=== PATIENT | female | born 1930 | race African-American/Black ===

== ENCOUNTER 2018-12-28 13:21 | Inpatient (IN) | payer MEDICARE, MEDICAID ==
[~2018-12-28] VITALS: Ht 171.4 cm; Wt 67.1 kg
[~2018-12-28 13:21] MED LIST: AMLO10TA80 PO; ANAS1TAB7 PO; APIX2.5T PO; COLC0.6T66 PO; CYAN100053 IM; DIPH50CA38 PO; DOCU-150 PO; ESOM40CA PO; HYDR-4005 GT; HYDR25TA PO; HYDR453.3 TP; MEGE400O PO; MELO-106 PO; METH500T PO; PREG75CA PO; TRAM50TA3 PO; TRIA1CAP6 PO
[2018-12-28] MEDS ORDERED: SODIUM CHLORIDE 0.9% 1,000 ML IV ONE (14:13)
[2018-12-28 14:35] LABS: BASOPHILS % 0.7 % (0.0-2.0); EOSINOPHILS % 2.5 % (0.0-5.0); HEMATOCRIT. 37.9 % (36.0-48.0); HEMOGLOBIN. 12.7 g/dL (12.0-16.0); LYMPHOCYTES % 17.2 % (20.0-50.0); MEAN CORPUSCULAR VOLUME 95.6 fL (81.0-99.0); MEAN PLATELET VOLUME 7.1 fl (7.4-10.4); MONOCYTES % 6.5 % (2.0-8.0); NEUTROPHILS % 73.1 % (40.0-76.0); PLATELET 289 x1000/uL (130-400); RED BLOOD CELL COUNT 3.97 mill/uL (4.2-5.4); RED CELL DISTRIBUTION WIDTH 14.8 % (11.6-14.6)
[2018-12-28 14:40] LABS: CHLORIDE 105 mEq/L (98-107)
[2018-12-28 14:41] LABS: INR 1.1
[2018-12-28] MEDS ORDERED: KCL 20MEQ/100ML PREMIX 100 ML IV ONE (15:45)
[2018-12-28] MEDS ORDERED: POTASSIUM CHLORIDE 20MEQ TABLET SR PO ONE (15:45)
[2018-12-28] MEDS: SODIUM CHLORIDE 0.9% 1,000 ML IV SCH (16:31)
[2018-12-28] MEDS ORDERED: DILTIAZEM HCL 30MG TABLET PO NR (17:00)
[2018-12-28] MEDS ORDERED: DOCUSATE SODIUM 100MG CAPSULE PO SCH (17:00)
[2018-12-28] MEDS ORDERED: DEXTROSE 50% WATER 50ML SYRINGE IV PRN ×2 (17:00)
[2018-12-28 18:09] LABS: CLARITY URINE CLEAR (CLEAR); COLOR URINE YELLOW (YELLOW); KETONES URINE NEGATIVE (NEGATIVE); LEUKOCYTE ESTERASE URINE NEGATIVE (NEGATIVE); NITRITE URINE NEGATIVE (NEGATIVE); OCCULT BLOOD URINE NEGATIVE (NEGATIVE); PH URINE 7.5 (4.5-8.0); PROTEIN URINE NEGATIVE (NEGATIVE); SPECIFIC GRAVITY URINE 1.005 (1.005-1.030); UROBILINOGEN URINE 0.2 E.U./dL (0.2-1.0)
[2018-12-28] MEDS ORDERED: METHOCARBAMOL 500MG TABLET PO PRN (18:30)
[2018-12-28] MEDS ORDERED: APIXABAN 2.5 MG TABLET PO NR (19:00)
[2018-12-28] MEDS: TRAMADOL 50MG TABLET PO PRN (20:03)
[2018-12-28 22:00] VITALS: BP_SYST 146; BP_SYST 147; BP_SYST 150; BP_DIAS 60; BP_DIAS 68; BP_DIAS 84; BP_DIAS 92
[2018-12-29] VITALS: BP 129/74
[2018-12-29] MEDS ORDERED: HYDROCORTISONE 2.5% CREAM 20GM TOP PRN
[2018-12-29] MEDS ORDERED: CYANOCOBALAMIN 1000MCG/ML VIAL IM SCH
[2018-12-29] MEDS: PREGABALIN 75MG CAPSULE PO SCH ×3 (00:11→21:16)
[2018-12-29] MEDS: FAMOTIDINE 20MG TABLET PO SCH ×2 (00:11→21:16)
[2018-12-29] MEDS: BLOOD SUGAR DIAGNOSTIC STRIP TEST SCH ×5 (00:12→21:17)
[2018-12-29] MEDS: INSULIN LISPRO 100 UNITS/ML SUBCUT SCH ×5 (00:20→21:00)
[2018-12-29 04:00] VITALS: BP 132/68
[2018-12-29] MEDS: TRAMADOL 50MG TABLET PO PRN (04:16)
[2018-12-29] MEDS: SODIUM CHLORIDE 0.9% 1,000 ML IV SCH ×2 (04:17→18:38)
[2018-12-29 05:54] LABS: BASOPHILS % 0.3 % (0.0-2.0); HEMATOCRIT. 32.2 % (36.0-48.0); HEMOGLOBIN. 10.9 g/dL (12.0-16.0); MEAN CORPUSCULAR HEMOGLOBIN 32.1 pg (28.0-32.0); MEAN CORPUSCULAR VOLUME 95.1 fL (81.0-99.0); MEAN PLATELET VOLUME 7.5 fl (7.4-10.4); MONOCYTES % 10.2 % (2.0-8.0); NEUTROPHILS % 54.5 % (40.0-76.0); PLATELET 298 x1000/uL (130-400); RED BLOOD CELL COUNT 3.39 mill/uL (4.2-5.4); RED CELL DISTRIBUTION WIDTH 14.6 % (11.6-14.6)
[2018-12-29 05:57] LABS: CHLORIDE 114 mEq/L (98-107)
[2018-12-29 06:05] LABS: HDL CHOLESTEROL 50 mg/dL (40-59)
[2018-12-29 06:06] LABS: LDL CHOLESTEROL 56 mg/dL (5-100)
[2018-12-29 07:50] VITALS: BP 128/70
[2018-12-29] MEDS: COLCHICINE 0.6MG TABLET PO SCH (08:45)
[2018-12-29] MEDS: MELOXICAM 7.5MG TABLET PO SCH (08:45)
[2018-12-29] MEDS: DOCUSATE SODIUM 100MG CAPSULE PO SCH ×2 (08:47→16:05)
[2018-12-29] MEDS: MEGESTROL ACETATE 400 MG/10 ML UDC PO SCH (09:22)
[2018-12-29] MEDS: APIXABAN 2.5 MG TABLET PO SCH ×2 (09:23→16:05)
[2018-12-29] MEDS: ANASTROZOLE 1 MG TABLET PO SCH (09:55)
[2018-12-29] MEDS ORDERED: POTASSIUM CHLORIDE 20MEQ TABLET SR PO SCH (11:30)
[2018-12-29 12:00] VITALS: BP 124/64
[2018-12-29 16:00] VITALS: BP_SYST 139; BP_SYST 148; BP_SYST 165; BP_DIAS 75; BP_DIAS 78; BP_DIAS 92
[2018-12-29 20:00] VITALS: BP_SYST 145; BP_SYST 147; BP_SYST 152; BP_DIAS 62; BP_DIAS 72; BP_DIAS 78
[2018-12-30] VITALS: BP 140/70
[2018-12-30] MEDS: TRAMADOL 50MG TABLET PO PRN (01:39)
[2018-12-30 04:00] VITALS: BP 135/64
[2018-12-30] MEDS: BLOOD SUGAR DIAGNOSTIC STRIP TEST SCH ×2 (06:34→13:15)
[2018-12-30] MEDS: INSULIN LISPRO 100 UNITS/ML SUBCUT SCH ×2 (06:34→13:10)
[2018-12-30 07:33] LABS: BASOPHILS % 0.7 % (0.0-2.0); EOSINOPHILS % 5.1 % (0.0-5.0); HEMATOCRIT. 31.6 % (36.0-48.0); HEMOGLOBIN. 10.7 g/dL (12.0-16.0); LYMPHOCYTES % 32.2 % (20.0-50.0); MEAN CORPUSCULAR HEMOGLOBIN 32.2 pg (28.0-32.0); MEAN CORPUSCULAR VOLUME 95.2 fL (81.0-99.0); MEAN PLATELET VOLUME 7.6 fl (7.4-10.4); PLATELET 289 x1000/uL (130-400); RED BLOOD CELL COUNT 3.32 mill/uL (4.2-5.4); RED CELL DISTRIBUTION WIDTH 14.8 % (11.6-14.6)
[2018-12-30 07:56] LABS: CHLORIDE 113 mEq/L (98-107)
[2018-12-30] MEDS: MELOXICAM 7.5MG TABLET PO SCH (08:30)
[2018-12-30] MEDS: COLCHICINE 0.6MG TABLET PO SCH (08:30)
[2018-12-30] MEDS: DOCUSATE SODIUM 100MG CAPSULE PO SCH (08:30)
[2018-12-30] MEDS: PREGABALIN 75MG CAPSULE PO SCH (08:30)
[2018-12-30] MEDS: MEGESTROL ACETATE 400 MG/10 ML UDC PO SCH (08:30)
[2018-12-30] MEDS: APIXABAN 2.5 MG TABLET PO SCH (08:30)
[2018-12-30] MEDS: ANASTROZOLE 1 MG TABLET PO SCH (09:27)
[2018-12-30] MEDS: SODIUM CHLORIDE 0.9% 1,000 ML IV SCH (13:12)
[2018-12-30 16:44] VITALS: BP 129/85
== END 2018-12-30 17:24 | disposition home health service (06) | DRG 74 ==
LOC: ER 13:21 → 7WST 16:21 → EDBEDREQ 16:31 → ENRESERV 20:40
PROVIDERS: ADMIT Specialist; ATTEND Specialist
DX: G90.8 Other disorders of autonomic nervous system (principal); E44.1 Mild protein-calorie malnutrition; E87.6 Hypokalemia; E86.0 Dehydration; R62.7 Adult failure to thrive; I48.91 Unspecified atrial fibrillation; E11.65 Type 2 diabetes mellitus with hyperglycemia; E78.5 Hyperlipidemia, unspecified; I10 Essential (primary) hypertension; I25.10 Atherosclerotic heart disease of native coronary artery without angina pectoris; I95.9 Hypotension, unspecified; E87.5 Hyperkalemia; I45.9 Conduction disorder, unspecified; Z79.01 Long term (current) use of anticoagulants; Z85.3 Personal history of malignant neoplasm of breast; Z90.12 Acquired absence of left breast and nipple; Z82.49 Family history of ischemic heart disease and other diseases of the circulatory system; Z68.22 Body mass index [BMI] 22.0-22.9, adult; Z88.8 Allergy status to other drugs, medicaments and biological substances; Z88.0 Allergy status to penicillin
CPT/HCPCS: 36415; 71045; 80048; 80061; 81003; 82947; 82962; 83036; 83735; 84443; 84484; 93005; 93306; 97162; 99291; J1815; J3480; J7030

== ENCOUNTER 2019-01-29 14:32 | Inpatient (IN) | payer MEDICARE, MEDICAID ==
[~2019-01-29] VITALS: Ht 167.6 cm; Wt 68.9 kg
[~2019-01-29 14:32] MED LIST changes: -AMLO10TA80 PO; -HYDR25TA PO; -TRIA1CAP6 PO
[2019-01-29] MEDS ORDERED: ACETAMINOPHEN 650MG SUPP PR STA (14:59)
[2019-01-29] MEDS ORDERED: AZTREONAM IV ONE (15:00)
[2019-01-29] MEDS ORDERED: DEXT 5% IV ONE (15:00)
[2019-01-29] MEDS ORDERED: LEVOFLOXACIN 750MG PREMIX 150 ML IV ONE (15:00)
[2019-01-29] MEDS ORDERED: SODIUM CHLORIDE 0.9% 1000ML BAG (SEPSIS BOLUS) IV ONE (15:00)
[2019-01-29] MEDS ORDERED: WATER IV ONE (15:00)
[2019-01-29] MEDS ORDERED: AZTREONAM 2 GM in DEXT 5% WATER 100 ML IV ONE (15:38)
[2019-01-29 15:42] LABS: CHLORIDE 101 mEq/L (98-107)
[2019-01-29 15:48] LABS: HEMATOCRIT. 38.9 % (36.0-48.0); MEAN CORPUSCULAR HEMOGLOBIN 31.8 pg (28.0-32.0); MEAN CORPUSCULAR VOLUME 95.1 fL (81.0-99.0); MEAN PLATELET VOLUME 7.7 fl (7.4-10.4); PLATELET 280 x1000/uL (130-400); RED BLOOD CELL COUNT 4.09 mill/uL (4.2-5.4); RED CELL DISTRIBUTION WIDTH 14.8 % (11.6-14.6)
[2019-01-29 15:49] LABS: PROTHROMBIN TIME 10.7 sec (9.6-11.0)
[2019-01-29 15:55] LABS: CLARITY URINE CLEAR (CLEAR); COLOR URINE YELLOW (YELLOW); KETONES URINE TRACE (NEGATIVE); LEUKOCYTE ESTERASE URINE NEGATIVE (NEGATIVE); NITRITE URINE NEGATIVE (NEGATIVE); OCCULT BLOOD URINE NEGATIVE (NEGATIVE); PH URINE 7.5 (4.5-8.0); PROTEIN URINE NEGATIVE (NEGATIVE); SPECIFIC GRAVITY URINE 1.015 (1.005-1.030)
[2019-01-29 17:44] LABS: PLATELET ESTIMATE NORMAL
[2019-01-29] MEDS ORDERED: LORAZEPAM 2MG/ML CPJ IV PRN (17:45)
[2019-01-29] MEDS ORDERED: MORPHINE SULFATE 2 MG/ML CPJ (NOT FOR IM USE) IV PRN (17:45)
[2019-01-29] MEDS ORDERED: DIPHENHYDRAMINE 50MG/ML VIAL IV PRN (17:45)
[2019-01-29] MEDS ORDERED: MAGNESIUM/ALUMINUM HYDROXIDE/SIMETHICONE 30ML UDC PO PRN (17:45)
[2019-01-29] MEDS ORDERED: ACETAMINOPHEN 325MG TABLET PO PRN (17:45)
[2019-01-29] MEDS ORDERED: DOCUSATE SODIUM 100MG CAPSULE PO PRN (17:45)
[2019-01-29] MEDS ORDERED: ACETAMINOPHEN 650MG SUPP PR PRN (17:45)
[2019-01-29] MEDS ORDERED: GUAIFENESIN 200MG/10ML SUGAR FREE UDC PO PRN (17:45)
[2019-01-29] MEDS ORDERED: CLONIDINE 0.1MG TABLET PO PRN (17:45)
[2019-01-29] MEDS ORDERED: ONDANSETRON HCL 4MG/2ML INJ IV PRN (17:45)
[2019-01-29] MEDS ORDERED: IPRATROPIUM/ALBUTEROL 0.5-3(2.5)MG/3ML NEB HHN PRN (17:45)
[2019-01-29] MEDS: DEXT 5%/LACTATED RINGERS 1,000 ML IV SCH (20:00)
[2019-01-29] MEDS ORDERED: DIPHENHYDRAMINE 50MG CAPSULE PO NR (21:45)
[2019-01-29] MEDS ORDERED: METHOCARBAMOL 500MG TABLET PO PRN (21:45)
[2019-01-29 22:00] VITALS: BP_SYST 116; BP_SYST 117; BP_DIAS 53; BP_DIAS 76
[2019-01-29] MEDS: HYDROCODONE/ACETAMINOPHEN 5/325MG TABLET PO PRN (22:16)
[2019-01-29] MEDS: PREGABALIN 50 MG CAPSULE PO SCH (22:25)
[2019-01-30] VITALS (11 sets, daily range): BP systolic 105–132; BP diastolic 47–91
[2019-01-30] MEDS ORDERED: POTASSIUM CHLORIDE INJ 40 MEQ in DEXT 5% WATER 250 ML IV NR ×2
[2019-01-30] MEDS: METRONIDAZOLE 500 MG PREMIX 100 ML IV SCH ×3 (02:42→17:21)
[2019-01-30 06:36] LABS: CHLORIDE 105 mEq/L (98-107)
[2019-01-30 06:45] LABS: HEMATOCRIT. 35.3 % (36.0-48.0); MEAN CORPUSCULAR HEMOGLOBIN 32.5 pg (28.0-32.0); MEAN CORPUSCULAR VOLUME 95.3 fL (81.0-99.0); MEAN PLATELET VOLUME 8.1 fl (7.4-10.4); PLATELET 253 x1000/uL (130-400)
[2019-01-30 06:47] LABS: CREATINE KINASE 129 IU/L (26-192)
[2019-01-30 06:48] LABS: HDL CHOLESTEROL 51 mg/dL (40-59); LDL CHOLESTEROL 57 mg/dL (5-100)
[2019-01-30] MEDS ORDERED: PNEUMOCOCCAL 23-VAL P-SAC VAC 0.5 ML IM ONE (08:00)
[2019-01-30] MEDS ORDERED: APIXABAN 2.5 MG TABLET PO SCH (09:00)
[2019-01-30] MEDS: COLCHICINE 0.6MG TABLET PO SCH (09:24)
[2019-01-30] MEDS: ANASTROZOLE 1 MG TABLET PO SCH (09:24)
[2019-01-30] MEDS: PREGABALIN 50 MG CAPSULE PO SCH ×3 (09:24→17:20)
[2019-01-30] MEDS: DEXT 5%/LACTATED RINGERS 1,000 ML IV SCH (09:25)
[2019-01-30] MEDS: MEGESTROL ACETATE 400 MG/10 ML UDC PO SCH (09:25)
[2019-01-30] MEDS ORDERED: INFLUENZA VIRUS VACCINE(AFLURIA) 0.5ML SYR IM ONE (10:00)
[2019-01-30 10:23] LABS: PLATELET ESTIMATE NORMAL
[2019-01-30] MEDS: LEVOFLOXACIN 250MG PREMIX 50 ML IV SCH (15:30)
[2019-01-30] MEDS ORDERED: LEVOFLOXACIN 500MG PREMIX 100 ML IV SCH (17:00)
[2019-01-30] MEDS: ENOXAPARIN 80MG/0.8ML SYR SUBCUT SCH (21:42)
[2019-01-31] VITALS (9 sets, daily range): BP systolic 125–156; BP diastolic 64–87
[2019-01-31] MEDS: METRONIDAZOLE 500 MG PREMIX 100 ML IV SCH ×3 (02:59→20:33)
[2019-01-31] MEDS: HYDROCODONE/ACETAMINOPHEN 5/325MG TABLET PO PRN (05:06)
[2019-01-31] MEDS: DEXT 5%/LACTATED RINGERS 1,000 ML IV SCH ×3 (05:07→22:09)
[2019-01-31 06:33] LABS: BASOPHILS % 0.3 % (0.0-2.0); EOSINOPHILS % 3.1 % (0.0-5.0); HEMATOCRIT. 36.9 % (36.0-48.0); HEMOGLOBIN. 12.5 g/dL (12.0-16.0); LYMPHOCYTES % 17.6 % (20.0-50.0); MEAN CORPUSCULAR HEMOGLOBIN 32.3 pg (28.0-32.0); MEAN CORPUSCULAR VOLUME 95.3 fL (81.0-99.0); MEAN PLATELET VOLUME 7.8 fl (7.4-10.4); MONOCYTES % 9.2 % (2.0-8.0); NEUTROPHILS % 69.8 % (40.0-76.0); PLATELET 268 x1000/uL (130-400); RED BLOOD CELL COUNT 3.87 mill/uL (4.2-5.4); RED CELL DISTRIBUTION WIDTH 14.7 % (11.6-14.6)
[2019-01-31 06:45] LABS: CHLORIDE 108 mEq/L (98-107)
[2019-01-31] MEDS: COLCHICINE 0.6MG TABLET PO SCH (08:23)
[2019-01-31] MEDS: MEGESTROL ACETATE 400 MG/10 ML UDC PO SCH (08:23)
[2019-01-31] MEDS: PREGABALIN 50 MG CAPSULE PO SCH ×2 (08:23→16:57)
[2019-01-31] MEDS: ANASTROZOLE 1 MG TABLET PO SCH (08:23)
[2019-01-31] MEDS: ENOXAPARIN 80MG/0.8ML SYR SUBCUT SCH ×2 (08:24→20:34)
[2019-01-31] MEDS ORDERED: POTASSIUM CHLORIDE 20MEQ TABLET SR PO NR (11:00)
[2019-01-31] MEDS: DILTIAZEM HCL 60MG TABLET PO SCH ×2 (13:57→22:08)
[2019-01-31] MEDS: LEVOFLOXACIN 250MG PREMIX 50 ML IV SCH (16:57)
[2019-01-31] MEDS: TRAMADOL 50MG TABLET PO PRN (20:32)
[2019-02-01] VITALS (14 sets, daily range): BP systolic 102–145; BP diastolic 53–73
[2019-02-01] MEDS: TRAMADOL 50MG TABLET PO PRN ×2 (04:39→20:44)
[2019-02-01] MEDS: METRONIDAZOLE 500 MG PREMIX 100 ML IV SCH ×2 (04:39→09:19)
[2019-02-01] MEDS: DILTIAZEM HCL 60MG TABLET PO SCH (05:19)
[2019-02-01] MEDS: DEXT 5%/LACTATED RINGERS 1,000 ML IV SCH (08:24)
[2019-02-01] MEDS: COLCHICINE 0.6MG TABLET PO SCH (08:24)
[2019-02-01] MEDS: ANASTROZOLE 1 MG TABLET PO SCH (08:24)
[2019-02-01] MEDS: PREGABALIN 50 MG CAPSULE PO SCH ×2 (08:24→16:28)
[2019-02-01] MEDS: ENOXAPARIN 80MG/0.8ML SYR SUBCUT SCH ×2 (08:24→20:43)
[2019-02-01] MEDS: MEGESTROL ACETATE 400 MG/10 ML UDC PO SCH (08:25)
[2019-02-01 11:46] LABS: BASOPHILS % 0.3 % (0.0-2.0); EOSINOPHILS % 6.1 % (0.0-5.0); HEMATOCRIT. 32.9 % (36.0-48.0); HEMOGLOBIN. 11.1 g/dL (12.0-16.0); LYMPHOCYTES % 24.5 % (20.0-50.0); MEAN CORPUSCULAR HEMOGLOBIN 32.3 pg (28.0-32.0); MEAN CORPUSCULAR VOLUME 95.7 fL (81.0-99.0); MEAN PLATELET VOLUME 7.7 fl (7.4-10.4); MONOCYTES % 9.8 % (2.0-8.0); NEUTROPHILS % 59.3 % (40.0-76.0); PLATELET 263 x1000/uL (130-400); RED BLOOD CELL COUNT 3.43 mill/uL (4.2-5.4); RED CELL DISTRIBUTION WIDTH 14.8 % (11.6-14.6)
[2019-02-01 12:24] LABS: CHLORIDE 109 mEq/L (98-107)
[2019-02-01] MEDS ORDERED: DILTIAZEM HCL 30MG TABLET PO SCH (14:00)
[2019-02-01] MEDS: LEVOFLOXACIN 250MG TABLET PO SCH (16:29)
[2019-02-01] MEDS ORDERED: MAGNESIUM 2 G PREMIX 50 ML IV SCH (17:00)
[2019-02-01] MEDS: METRONIDAZOLE 500MG TABLET PO SCH (22:41)
[2019-02-02] VITALS (12 sets, daily range): BP systolic 121–157; BP diastolic 34–92
[2019-02-02] MEDS: DEXT 5%/LACTATED RINGERS 1,000 ML IV SCH (01:24)
[2019-02-02] MEDS: METRONIDAZOLE 500MG TABLET PO SCH ×2 (06:33→13:41)
[2019-02-02] MEDS: TRAMADOL 50MG TABLET PO PRN (06:36)
[2019-02-02 08:03] LABS: CHLORIDE 109 mEq/L (98-107)
[2019-02-02 08:04] LABS: BASOPHILS % 0.7 % (0.0-2.0); EOSINOPHILS % 6.7 % (0.0-5.0); HEMATOCRIT. 34.4 % (36.0-48.0); HEMOGLOBIN. 11.5 g/dL (12.0-16.0); LYMPHOCYTES % 30.5 % (20.0-50.0); MEAN CORPUSCULAR HEMOGLOBIN 31.8 pg (28.0-32.0); MEAN PLATELET VOLUME 7.9 fl (7.4-10.4); MONOCYTES % 8.7 % (2.0-8.0); NEUTROPHILS % 53.4 % (40.0-76.0); PLATELET 271 x1000/uL (130-400); RED BLOOD CELL COUNT 3.62 mill/uL (4.2-5.4); RED CELL DISTRIBUTION WIDTH 15.1 % (11.6-14.6)
[2019-02-02] MEDS: PREGABALIN 50 MG CAPSULE PO SCH ×2 (08:51→16:57)
[2019-02-02] MEDS: ANASTROZOLE 1 MG TABLET PO SCH (08:51)
[2019-02-02] MEDS: COLCHICINE 0.6MG TABLET PO SCH (08:51)
[2019-02-02] MEDS: MEGESTROL ACETATE 400 MG/10 ML UDC PO SCH (08:51)
[2019-02-02] MEDS: ENOXAPARIN 80MG/0.8ML SYR SUBCUT SCH (08:52)
[2019-02-02] MEDS ORDERED: LIDOCAINE 5% PATCH TOP SCH ×2 (09:00)
[2019-02-02] MEDS ORDERED: LIDO700A30 TOP (13:13)
[2019-02-02] MEDS ORDERED: POTASSIUM CHLORIDE 20MEQ TABLET SR PO SCH (13:15)
[2019-02-02] MEDS: LEVOFLOXACIN 250MG TABLET PO SCH (16:57)
== END 2019-02-02 17:00 | disposition home or self-care (01) | DRG 872 ==
LOC: ER 14:32 → 5EST 17:35 → EDBEDREQ 17:42 → ENRESERV 19:49
PROVIDERS: ADMIT Family Medicine Adult Medicine; ATTEND Family Medicine Adult Medicine
DX: A41.9 Sepsis, unspecified organism (principal); K81.0 Acute cholecystitis; I48.92 Unspecified atrial flutter; I48.20 Chronic atrial fibrillation, unspecified; E87.6 Hypokalemia; I10 Essential (primary) hypertension; E78.5 Hyperlipidemia, unspecified; K57.30 Diverticulosis of large intestine without perforation or abscess without bleeding; E78.00 Pure hypercholesterolemia, unspecified; I25.10 Atherosclerotic heart disease of native coronary artery without angina pectoris; J44.9 Chronic obstructive pulmonary disease, unspecified; K21.9 Gastro-esophageal reflux disease without esophagitis; R73.9 Hyperglycemia, unspecified; K44.9 Diaphragmatic hernia without obstruction or gangrene; K59.00 Constipation, unspecified; K74.60 Unspecified cirrhosis of liver; R74.0 Nonspecific elevation of levels of transaminase and lactic acid dehydrogenase [LDH]; K82.8 Other specified diseases of gallbladder; M19.90 Unspecified osteoarthritis, unspecified site; Z79.01 Long term (current) use of anticoagulants; Z85.3 Personal history of malignant neoplasm of breast; Z90.11 Acquired absence of right breast and nipple; Z90.12 Acquired absence of left breast and nipple; Z98.51 Tubal ligation status; Z79.899 Other long term (current) drug therapy; Z88.0 Allergy status to penicillin; Z88.8 Allergy status to other drugs, medicaments and biological substances
CPT/HCPCS: 36415; 71045; 74176; 74181; 76705; 80048; 80061; 80076; 81003; 82140; 82248; 82550; 82962; 83605; 83735; 83880; 84132; 84145; 84443; 84484; 90686; 90732; 93005; 93970; 96365; 97162; 97166; 99291; J1200; J1650; J1956; J2060; J3475; J3480; J3490; J7030; J7060; Q0163

== ENCOUNTER 2019-02-09 18:41 | Inpatient (IN) | payer MEDICARE, MEDICAID ==
[~2019-02-09] VITALS: Ht 170.2 cm; Wt 64.9 kg
[~2019-02-09 18:41] MED LIST changes: +LIDO700A30 TOP
[2019-02-09] MEDS ORDERED: SODIUM CHLORIDE 0.9% 1,000 ML IV ONE (20:56)
[2019-02-09 21:25] LABS: HEMATOCRIT. 39.3 % (36.0-48.0); HEMOGLOBIN. 12.9 g/dL (12.0-16.0); MEAN CORPUSCULAR HEMOGLOBIN 32.2 pg (28.0-32.0); RED BLOOD CELL COUNT 4.01 mill/uL (4.2-5.4); RED CELL DISTRIBUTION WIDTH 15.4 % (11.6-14.6)
[2019-02-09 21:29] LABS: CHLORIDE 110 mEq/L (98-107)
[2019-02-09] MEDS ORDERED: IOHEXOL-350 100 ML BOTTLE ONE (21:51)
[2019-02-09 21:53] LABS: MEAN PLATELET VOLUME 7.4 fl (7.4-10.4); PLATELET 364 x1000/uL (130-400)
[2019-02-09 22:01] LABS: PLATELET ESTIMATE NORMAL
[2019-02-09] MEDS ORDERED: KETOROLAC 15MG/ML VIAL IV ONE (22:45)
[2019-02-09] MEDS ORDERED: ONDANSETRON HCL 4MG/2ML INJ IV ONE (23:45)
[2019-02-09 23:55] LABS: CLARITY URINE CLEAR (CLEAR); COLOR URINE YELLOW (YELLOW); KETONES URINE TRACE (NEGATIVE); LEUKOCYTE ESTERASE URINE 1+ (NEGATIVE); NITRITE URINE NEGATIVE (NEGATIVE); OCCULT BLOOD URINE NEGATIVE (NEGATIVE); PROTEIN URINE NEGATIVE (NEGATIVE); SPECIFIC GRAVITY URINE 1.019 (1.005-1.030); UROBILINOGEN URINE 0.2 E.U./dL (0.2-1.0)
[2019-02-10] MEDS ORDERED: CLONIDINE 0.1MG TABLET PO PRN (01:30)
[2019-02-10] MEDS ORDERED: ONDANSETRON HCL 4MG/2ML INJ IV PRN (01:30)
[2019-02-10] MEDS ORDERED: MAGNESIUM/ALUMINUM HYDROXIDE/SIMETHICONE 30ML UDC PO PRN (01:30)
[2019-02-10] MEDS ORDERED: GUAIFENESIN 200MG/10ML SUGAR FREE UDC PO PRN (01:30)
[2019-02-10] MEDS ORDERED: ACETAMINOPHEN 325MG TABLET PO PRN (01:30)
[2019-02-10] MEDS ORDERED: DOCUSATE SODIUM 100MG CAPSULE PO PRN (01:30)
[2019-02-10] MEDS ORDERED: LEVOFLOXACIN 500MG PREMIX 100 ML IV NR (01:47)
[2019-02-10 03:08] VITALS: BP 145/76
[2019-02-10 08:43] VITALS: BP 117/47
[2019-02-10] MEDS: FUROSEMIDE 40MG/4ML VIAL IV SCH (09:47)
[2019-02-10] MEDS: AMLODIPINE 10MG TABLET PO SCH (09:47)
[2019-02-10] MEDS: ENOXAPARIN 40MG/0.4ML SYR SUBCUT SCH (09:48)
[2019-02-10] MEDS ORDERED: HYDROCODONE/APAP 7.5/325MG 1 TAB TABLET GT PRN (10:30)
[2019-02-10] MEDS ORDERED: TRAMADOL 50MG TABLET PO SCH (10:30)
[2019-02-10] MEDS: DIPHENHYDRAMINE 50MG CAPSULE PO SCH ×3 (10:45→23:01)
[2019-02-10] MEDS ORDERED: CYANOCOBALAMIN 1000MCG/ML VIAL IM SCH (10:45)
[2019-02-10 11:55] VITALS: BP 110/53
[2019-02-10] MEDS: MEGESTROL ACETATE 400 MG/10 ML UDC PO SCH (13:31)
[2019-02-10] MEDS: COLCHICINE 0.6MG TABLET PO SCH (13:32)
[2019-02-10] MEDS: ANASTROZOLE 1 MG TABLET PO SCH (13:32)
[2019-02-10] MEDS: METHOCARBAMOL 500MG TABLET PO PRN (13:32)
[2019-02-10] MEDS: PREGABALIN 75MG CAPSULE PO SCH ×2 (13:32→17:27)
[2019-02-10] MEDS: LIDOCAINE 5% PATCH TOP SCH (13:35)
[2019-02-10 15:52] VITALS: BP 113/47
[2019-02-10] MEDS: DOCUSATE SODIUM 100MG CAPSULE PO SCH (17:00)
[2019-02-10] MEDS: APIXABAN 2.5 MG TABLET PO SCH (17:28)
[2019-02-10] MEDS: LOPERAMIDE HCL 2MG CAPSULE PO PRN (18:49)
[2019-02-10 20:00] VITALS: BP 113/49
[2019-02-11] VITALS: BP 152/87
[2019-02-11] MEDS ORDERED: LEVOFLOXACIN 250MG PREMIX 50 ML IV SCH (02:00)
[2019-02-11 04:00] VITALS: BP 129/55
[2019-02-11] MEDS: DIPHENHYDRAMINE 50MG CAPSULE PO SCH ×3 (05:44→17:48)
[2019-02-11 07:16] LABS: BASOPHILS % 0.2 % (0.0-2.0); EOSINOPHILS % 1.4 % (0.0-5.0); HEMATOCRIT. 33.2 % (36.0-48.0); HEMOGLOBIN. 11.3 g/dL (12.0-16.0); LYMPHOCYTES % 16.3 % (20.0-50.0); MEAN CORPUSCULAR HEMOGLOBIN 32.1 pg (28.0-32.0); MEAN CORPUSCULAR VOLUME 94.4 fL (81.0-99.0); MEAN PLATELET VOLUME 7.5 fl (7.4-10.4); MONOCYTES % 7.2 % (2.0-8.0); NEUTROPHILS % 74.9 % (40.0-76.0); PLATELET 384 x1000/uL (130-400); RED BLOOD CELL COUNT 3.51 mill/uL (4.2-5.4); RED CELL DISTRIBUTION WIDTH 15.4 % (11.6-14.6)
[2019-02-11 07:21] LABS: CHLORIDE 110 mEq/L (98-107)
[2019-02-11 08:00] VITALS: BP 133/60
[2019-02-11] MEDS: ENOXAPARIN 40MG/0.4ML SYR SUBCUT SCH (09:00)
[2019-02-11] MEDS: FUROSEMIDE 40MG/4ML VIAL IV SCH (09:00)
[2019-02-11 09:39] LABS: BG BASE EXCESS -3.1 mmol/L (-2.0-2.0); BG DEOXYHEMOGLOBIN 2.5 % (0.0-5.0); BG FRACTION INSPIRED OXYGEN 21; BG HCO3 ACT 19.9 mmol/L (22.0-26.0); BG METHEMOGLOBIN 0.2 % (0.0-1.5); BG OXYGEN SATURATION 97.5 % (92.0-98.5); BG OXYHEMOGLOBIN 97.3 % (94.0-97.0); BG PCO2 29.4 mmHg (35.0-45.0); BG PH 7.448 (7.350-7.450); BG SAMPLE SITE RIGHT BRACHIAL; BG TOTAL HEMOGLOBIN 11.7 g/dL (12.0-18.0); BG VENT MODE ROOM AIR
[2019-02-11] MEDS: ANASTROZOLE 1 MG TABLET PO SCH (09:46)
[2019-02-11] MEDS: MEGESTROL ACETATE 400 MG/10 ML UDC PO SCH (09:46)
[2019-02-11] MEDS: PREGABALIN 75MG CAPSULE PO SCH ×2 (09:46→17:43)
[2019-02-11] MEDS: AMLODIPINE 10MG TABLET PO SCH (09:47)
[2019-02-11] MEDS: COLCHICINE 0.6MG TABLET PO SCH (09:47)
[2019-02-11] MEDS: APIXABAN 2.5 MG TABLET PO SCH ×2 (09:47→17:43)
[2019-02-11] MEDS: HYDROCODONE/ACETAMINOPHEN 5/325MG TABLET PO PRN (09:48)
[2019-02-11] MEDS: LIDOCAINE 5% PATCH TOP SCH (10:00)
[2019-02-11] MEDS: DOCUSATE SODIUM 100MG CAPSULE PO SCH (10:45)
[2019-02-11 12:00] VITALS: BP 100/64
[2019-02-11] MEDS ORDERED: POTASSIUM CHLORIDE INJ 40 MEQ in DEXT 5% WATER 250 ML IV SCH (13:00)
[2019-02-11] MEDS ORDERED: LIDOCAINE HCL/PF 1% 2ML VIAL ONE (13:34)
[2019-02-11] MEDS: POTASSIUM CHLORIDE 20MEQ TABLET SR PO SCH (13:50)
[2019-02-11] MEDS: LOPERAMIDE HCL 2MG CAPSULE PO PRN (15:06)
[2019-02-11 16:00] VITALS: BP 107/71
[2019-02-11] MEDS ORDERED: MAGNESIUM 2 G PREMIX 50 ML IV NR (17:00)
[2019-02-11] MEDS ORDERED: LEVO75TA7 MT (17:58)
[2019-02-11] MEDS ORDERED: MONT4TAB9 MT (18:00)
[2019-02-11] MEDS ORDERED: HYDR-4133 PO (18:01)
[2019-02-11] MEDS ORDERED: LATA7.5D OP (18:55)
[2019-02-11] MEDS ORDERED: DORZ10DR9 EACHEYE (18:56)
[2019-02-11] MEDS ORDERED: DORZ10DR8 EACHEYE (18:56)
[2019-02-11 20:00] VITALS: BP 105/52
[2019-02-12] VITALS: BP_SYST 139; BP_SYST 148; BP_DIAS 52; BP_DIAS 86
[2019-02-12] MEDS: DIPHENHYDRAMINE 50MG CAPSULE PO SCH ×3 (00:53→12:00)
[2019-02-12] MEDS: HYDROCODONE/ACETAMINOPHEN 5/325MG TABLET PO PRN (00:55)
[2019-02-12] MEDS ORDERED: LEVOFLOXACIN 250MG PREMIX 50 ML IV SCH (02:00)
[2019-02-12] MEDS: METHOCARBAMOL 500MG TABLET PO PRN (02:39)
[2019-02-12 04:00] VITALS: BP 120/53
[2019-02-12 08:00] VITALS: BP 124/86
[2019-02-12] MEDS: FUROSEMIDE 40MG/4ML VIAL IV SCH (08:49)
[2019-02-12] MEDS: AMLODIPINE 10MG TABLET PO SCH (08:51)
[2019-02-12] MEDS: POTASSIUM CHLORIDE 20MEQ TABLET SR PO SCH (08:51)
[2019-02-12] MEDS: PREGABALIN 75MG CAPSULE PO SCH (08:51)
[2019-02-12] MEDS: COLCHICINE 0.6MG TABLET PO SCH (08:51)
[2019-02-12] MEDS: APIXABAN 2.5 MG TABLET PO SCH (08:51)
[2019-02-12] MEDS: MEGESTROL ACETATE 400 MG/10 ML UDC PO SCH (08:52)
[2019-02-12] MEDS: ENOXAPARIN 40MG/0.4ML SYR SUBCUT SCH (08:52)
[2019-02-12] MEDS: ANASTROZOLE 1 MG TABLET PO SCH (08:52)
[2019-02-12] MEDS: LIDOCAINE 5% PATCH TOP SCH (08:53)
[2019-02-12] MEDS ORDERED: DOCUSATE SODIUM 100MG CAPSULE PO SCH (09:00)
[2019-02-12 12:00] VITALS: BP 121/55
[2019-02-12] MEDS ORDERED: ASCO500C15 PO (12:39)
[2019-02-12] MEDS ORDERED: BACL-141 PO (12:39)
[2019-02-12] MEDS ORDERED: MIDO10TA PO (12:42)
[2019-02-12] MEDS ORDERED: LEVE500T98 PO (12:42)
[2019-02-12] MEDS ORDERED: PANT20TA3 PO (12:44)
[2019-02-12] MEDS ORDERED: GABA-533 PO (12:45)
[2019-02-12] MEDS ORDERED: BICT1TAB PO (12:45)
[2019-02-12 13:40] LABS: CHLORIDE 110 mEq/L (98-107)
[2019-02-12 14:52] VITALS: BP 121/55
[2019-02-13] MEDS ORDERED: LEVOFLOXACIN 250MG TABLET PO SCH (11:00)
== END 2019-02-12 16:30 | disposition home or self-care (01) | DRG 871 ==
LOC: ER 18:41 → 6WST 23:50 → ENRESERV 02-10 02:20
PROVIDERS: ADMIT Hospitalist; ATTEND Hospitalist
DX: A41.9 Sepsis, unspecified organism (principal); I50.23 Acute on chronic systolic (congestive) heart failure; N39.0 Urinary tract infection, site not specified; D68.59 Other primary thrombophilia; I11.0 Hypertensive heart disease with heart failure; I48.91 Unspecified atrial fibrillation; E78.5 Hyperlipidemia, unspecified; M19.90 Unspecified osteoarthritis, unspecified site; I25.10 Atherosclerotic heart disease of native coronary artery without angina pectoris; Z79.01 Long term (current) use of anticoagulants; Z85.3 Personal history of malignant neoplasm of breast; Z90.12 Acquired absence of left breast and nipple; Z82.49 Family history of ischemic heart disease and other diseases of the circulatory system; Z88.0 Allergy status to penicillin; Z88.8 Allergy status to other drugs, medicaments and biological substances; Z79.899 Other long term (current) drug therapy
CPT/HCPCS: 36415; 36600; 71045; 80048; 81003; 82375; 82805; 83735; 83880; 84443; 84484; 93005; 93970; 96361; 96365; 96375; 97162; 97166; 99285; J1650; J1885; J1940; J1956; J2405; J3475; J3480; J3490; J7030; J7060; Q0163; Q9967

== ENCOUNTER 2019-03-08 11:25 | Inpatient (IN) | payer MEDICARE, MEDICAID ==
[~2019-03-08] VITALS: Ht 170.2 cm; Wt 63.5 kg
[~2019-03-08 11:25] MED LIST changes: +ASCO500C15 PO; +BACL-141 PO; +BICT1TAB PO; +DORZ10DR8 EACHEYE; +DORZ10DR9 EACHEYE; +GABA-533 PO; +HYDR-4133 PO; +LATA7.5D OP; +LEVE500T98 PO; +MIDO10TA PO; +MONT4TAB9 MT; +PANT20TA3 PO
[2019-03-08] MEDS ORDERED: LEVOFLOXACIN 750MG PREMIX 150 ML IV ONE (11:45)
[2019-03-08] MEDS ORDERED: SODIUM CHLORIDE 0.9% 1000ML BAG (SEPSIS BOLUS) IV ONE (11:45)
[2019-03-08 12:28] LABS: BASOPHILS % 0.5 % (0.0-2.0); EOSINOPHILS % 4.2 % (0.0-5.0); HEMATOCRIT. 44.6 % (36.0-48.0); HEMOGLOBIN. 14.8 g/dL (12.0-16.0); LYMPHOCYTES % 28.9 % (20.0-50.0); MEAN CORPUSCULAR HEMOGLOBIN 32.1 pg (28.0-32.0); MEAN CORPUSCULAR VOLUME 96.5 fL (81.0-99.0); MEAN PLATELET VOLUME 7.5 fl (7.4-10.4); MONOCYTES % 3.9 % (2.0-8.0); NEUTROPHILS % 62.5 % (40.0-76.0); PLATELET 322 x1000/uL (130-400); RED BLOOD CELL COUNT 4.62 mill/uL (4.2-5.4); RED CELL DISTRIBUTION WIDTH 15.2 % (11.6-14.6)
[2019-03-08 12:35] LABS: CHLORIDE 105 mEq/L (98-107)
[2019-03-08 12:37] LABS: INR 1.1; PARTIAL THROMBOPLASTIN TIME 29.4 sec (23.4-31.0); PROTHROMBIN TIME 11.1 sec (9.6-11.0)
[2019-03-08] MEDS ORDERED: METRONIDAZOLE 500 MG PREMIX 100 ML IV ONE (13:45)
[2019-03-08] MEDS ORDERED: POTASSIUM CHLORIDE 20MEQ TABLET SR PO ONE (14:15)
[2019-03-08 14:37] LABS: CLARITY URINE CLEAR (CLEAR); COLOR URINE YELLOW (YELLOW); KETONES URINE NEGATIVE (NEGATIVE); LEUKOCYTE ESTERASE URINE NEGATIVE (NEGATIVE); NITRITE URINE NEGATIVE (NEGATIVE); OCCULT BLOOD URINE NEGATIVE (NEGATIVE); PROTEIN URINE NEGATIVE (NEGATIVE); SPECIFIC GRAVITY URINE 1.014 (1.005-1.030); UROBILINOGEN URINE 0.2 E.U./dL (0.2-1.0)
[2019-03-08] MEDS ORDERED: SODIUM CHL 0.45% + KCL 20MEQ/L 1,000 ML IV SCH (16:15)
[2019-03-08 16:30] VITALS: BP 117/68
[2019-03-08] MEDS: SODIUM CHL 0.45% + KCL 20MEQ/L 1,000 ML IV SCH (17:46)
[2019-03-08 20:00] VITALS: BP 110/65
[2019-03-08] MEDS ORDERED: ONDANSETRON HCL 4MG/2ML INJ IV PRN (20:15)
[2019-03-08] MEDS ORDERED: DIPHENHYDRAMINE 50MG/ML VIAL IV PRN (20:15)
[2019-03-08] MEDS ORDERED: MAGNESIUM/ALUMINUM HYDROXIDE/SIMETHICONE 30ML UDC PO PRN (20:15)
[2019-03-08] MEDS ORDERED: CLONIDINE 0.1MG TABLET PO PRN (20:15)
[2019-03-08] MEDS ORDERED: ACETAMINOPHEN 325MG TABLET PO PRN (20:15)
[2019-03-08] MEDS: SODIUM CHLORIDE 0.9% INJ 3ML FLUSH IVF SCH (20:50)
[2019-03-08] MEDS ORDERED: MAGNESIUM HYDROXIDE 400MG/5ML 30ML UDC PO PRN (23:30)
[2019-03-09 00:05] VITALS: BP 124/77
[2019-03-09 04:00] VITALS: BP 143/58
[2019-03-09] MEDS ORDERED: TRAMADOL 50MG TABLET PO PRN (05:15)
[2019-03-09] MEDS: SODIUM CHLORIDE 0.9% INJ 3ML FLUSH IVF SCH ×2 (05:27→17:11)
[2019-03-09 08:00] VITALS: BP 118/55
[2019-03-09] MEDS: DOCUSATE SODIUM 100MG CAPSULE PO SCH ×2 (08:27→17:10)
[2019-03-09] MEDS: APIXABAN 5 MG TABLET PO SCH ×2 (08:27→17:10)
[2019-03-09] MEDS: SODIUM CHL 0.45% + KCL 20MEQ/L 1,000 ML IV SCH (08:27)
[2019-03-09 12:00] VITALS: BP 134/59
[2019-03-09 14:18] LABS: *AMPHETAMINES SCREEN URINE NEGATIVE (NEGATIVE); *BENZODIAZEPINES SCREEN URINE NEGATIVE (NEGATIVE)
[2019-03-09 14:19] LABS: *COCAINE SCREEN URINE NEGATIVE (NEGATIVE); METHADONE URINE SCREEN NEGATIVE (NEGATIVE); OPIATES URINE SCREEN PRESUMTIVE POSITIVE (NEGATIVE)
[2019-03-09 14:20] LABS: PHENCYCLIDINE URINE SCREEN NEGATIVE (NEGATIVE)
[2019-03-09 14:21] LABS: *BARBITURATES SCREEN URINE NEGATIVE (NEGATIVE); CANNABINOID URINE SCREEN NEGATIVE (NEGATIVE)
[2019-03-09 16:00] VITALS: BP 129/56
[2019-03-09 16:18] LABS: BASOPHILS % 0.2 % (0.0-2.0); EOSINOPHILS % 3.3 % (0.0-5.0); HEMATOCRIT. 34.3 % (36.0-48.0); HEMOGLOBIN. 11.7 g/dL (12.0-16.0); LYMPHOCYTES % 20.2 % (20.0-50.0); MEAN CORPUSCULAR HEMOGLOBIN 32.8 pg (28.0-32.0); MEAN CORPUSCULAR VOLUME 95.9 fL (81.0-99.0); MEAN PLATELET VOLUME 7.9 fl (7.4-10.4); MONOCYTES % 7.7 % (2.0-8.0); NEUTROPHILS % 68.6 % (40.0-76.0); PLATELET 276 x1000/uL (130-400); RED BLOOD CELL COUNT 3.58 mill/uL (4.2-5.4); RED CELL DISTRIBUTION WIDTH 15.4 % (11.6-14.6)
[2019-03-09 16:34] LABS: CHLORIDE 109 mEq/L (98-107)
[2019-03-09] MEDS ORDERED: POTASSIUM CHLORIDE 20MEQ TABLET SR PO SCH ×2 (17:00→17:30)
[2019-03-09 17:14] VITALS: BP 131/51
== END 2019-03-09 19:08 | disposition home or self-care (01) | DRG 74 ==
LOC: ER 11:25 → 7WST 14:05 → ENRESERV 15:59
PROVIDERS: ADMIT Internal Medicine; ATTEND Internal Medicine
DX: G90.8 Other disorders of autonomic nervous system (principal); I48.19 Other persistent atrial fibrillation; E03.9 Hypothyroidism, unspecified; I25.10 Atherosclerotic heart disease of native coronary artery without angina pectoris; E87.6 Hypokalemia; I49.3 Ventricular premature depolarization; I10 Essential (primary) hypertension; M19.90 Unspecified osteoarthritis, unspecified site; M10.9 Gout, unspecified; E11.9 Type 2 diabetes mellitus without complications; Z90.12 Acquired absence of left breast and nipple; Z85.3 Personal history of malignant neoplasm of breast; Z86.73 Personal history of transient ischemic attack (TIA), and cerebral infarction without residual deficits; Z87.440 Personal history of urinary (tract) infections; Z88.0 Allergy status to penicillin; Z88.8 Allergy status to other drugs, medicaments and biological substances; Z92.3 Personal history of irradiation; Z79.899 Other long term (current) drug therapy; Z98.51 Tubal ligation status; Z79.01 Long term (current) use of anticoagulants
CPT/HCPCS: 36415; 70544; 70553; 71045; 74176; 80048; 80053; 80305; 80320; 81003; 83605; 83735; 83880; 84145; 84443; 84484; 85025; 93005; 93306; 93880; 97162; 99291; J1200; J1956; J3480; J3490; J7030; A4315; G0480

== ENCOUNTER 2019-08-25 16:06 | Inpatient (IN) | payer MEDICARE, MEDICAID ==
[~2019-08-25] VITALS: Ht 170.2 cm; Wt 58.3 kg
[2019-08-25] MEDS ORDERED: SODIUM CHLORIDE 0.9% 1,000 ML IV ONE (16:49)
[2019-08-25 17:34] LABS: BASOPHILS % 0.5 % (0.0-2.0); EOSINOPHILS % 5.4 % (0.0-5.0); HEMATOCRIT. 40.6 % (36.0-48.0); HEMOGLOBIN. 13.5 g/dL (12.0-16.0); LYMPHOCYTES % 24.8 % (20.0-50.0); MEAN CORPUSCULAR HEMOGLOBIN 32.3 pg (28.0-32.0); MEAN CORPUSCULAR VOLUME 97.2 fL (81.0-99.0); MEAN PLATELET VOLUME 7.7 fl (7.4-10.4); MONOCYTES % 7.9 % (2.0-8.0); NEUTROPHILS % 61.4 % (40.0-76.0); PLATELET 250 x1000/uL (130-400); RED BLOOD CELL COUNT 4.17 mill/uL (4.2-5.4); RED CELL DISTRIBUTION WIDTH 14.8 % (11.6-14.6)
[2019-08-25 18:06] LABS: CHLORIDE 104 mEq/L (98-107)
[2019-08-25] MEDS ORDERED: DILTIAZEM HCL 30MG TABLET PO ONE ×2 (18:45→20:15)
[2019-08-25] MEDS ORDERED: AZITHROMYCIN 500 MG TABLET PO ONE (19:15)
[2019-08-25 19:40] LABS: CLARITY URINE CLEAR (CLEAR); COLOR URINE YELLOW (YELLOW); KETONES URINE NEGATIVE (NEGATIVE); LEUKOCYTE ESTERASE URINE NEGATIVE (NEGATIVE); NITRITE URINE NEGATIVE (NEGATIVE); OCCULT BLOOD URINE NEGATIVE (NEGATIVE); PROTEIN URINE NEGATIVE (NEGATIVE); UROBILINOGEN URINE 0.2 E.U./dL (0.2-1.0)
[2019-08-25] MEDS ORDERED: IBUPROFEN 200MG TABLET PO ONE (20:45)
[2019-08-25] MEDS ORDERED: ACETAMINOPHEN 325MG TABLET PO ONE (20:45)
[2019-08-25] MEDS ORDERED: MAGNESIUM/ALUMINUM HYDROXIDE/SIMETHICONE 30ML UDC PO PRN (22:45)
[2019-08-25] MEDS ORDERED: HYDROCODONE/ACETAMINOPHEN 5/325MG TABLET PO PRN (22:45)
[2019-08-25] MEDS ORDERED: GUAIFENESIN 200MG/10ML SUGAR FREE UDC PO PRN (22:45)
[2019-08-25] MEDS ORDERED: ONDANSETRON HCL 4MG/2ML INJ IV PRN (22:45)
[2019-08-25] MEDS ORDERED: ACETAMINOPHEN 325MG TABLET PO PRN (22:45)
[2019-08-25] MEDS ORDERED: MORPHINE SULFATE 2 MG/ML CPJ (NOT FOR IM USE) IV PRN (22:45)
[2019-08-25] MEDS ORDERED: DILTIAZEM HCL 30MG TABLET PO PRN (22:45)
[2019-08-25] MEDS ORDERED: CLONIDINE 0.1MG TABLET PO PRN (22:45)
[2019-08-25] MEDS ORDERED: DOCUSATE SODIUM 100MG CAPSULE PO PRN (22:45)
[2019-08-26] VITALS (9 sets, daily range): BP systolic 107–154; BP diastolic 55–90
[2019-08-26] MEDS ORDERED: POTASSIUM CHLORIDE 20MEQ TABLET SR PO NR (03:14)
[2019-08-26] MEDS: SODIUM CHLORIDE 0.9% 1,000 ML IV SCH ×2 (04:14→19:58)
[2019-08-26] MEDS ORDERED: LEVOFLOXACIN 500MG PREMIX 100 ML IV SCH (06:00)
[2019-08-26 06:44] LABS: CHLORIDE 105 mEq/L (98-107)
[2019-08-26 06:51] LABS: LDL CHOLESTEROL 63 mg/dL (5-100)
[2019-08-26 06:52] LABS: CREATINE KINASE 91 IU/L (26-192)
[2019-08-26 06:53] LABS: HDL CHOLESTEROL 51 mg/dL (40-59)
[2019-08-26 07:01] LABS: BASOPHILS % 0.3 % (0.0-2.0); EOSINOPHILS % 4.3 % (0.0-5.0); HEMATOCRIT. 39.1 % (36.0-48.0); LYMPHOCYTES % 21.7 % (20.0-50.0); MEAN CORPUSCULAR HEMOGLOBIN 32.6 pg (28.0-32.0); MEAN CORPUSCULAR VOLUME 98.5 fL (81.0-99.0); MEAN PLATELET VOLUME 7.6 fl (7.4-10.4); MONOCYTES % 7.6 % (2.0-8.0); NEUTROPHILS % 66.1 % (40.0-76.0); PLATELET 240 x1000/uL (130-400); RED BLOOD CELL COUNT 3.97 mill/uL (4.2-5.4); RED CELL DISTRIBUTION WIDTH 14.4 % (11.6-14.6)
[2019-08-26] MEDS ORDERED: APIXABAN 5 MG TABLET PO SCH (09:00)
[2019-08-26] MEDS: ASCORBIC ACID 500 MG TABLET PO SCH (10:30)
[2019-08-26] MEDS: GABAPENTIN 400MG CAPSULE PO SCH (10:30)
[2019-08-26] MEDS ORDERED: METHOCARBAMOL 500MG TABLET PO PRN (10:30)
[2019-08-26] MEDS: MEGESTROL ACETATE 400 MG/10 ML UDC PO SCH (10:30)
[2019-08-26] MEDS ORDERED: DORZOLAMIDE 2% OPHTH 10 ML BOTTLE EACHEYE SCH (10:30)
[2019-08-26] MEDS ORDERED: CYANOCOBALAMIN 1000MCG/ML VIAL IM SCH (10:30)
[2019-08-26] MEDS ORDERED: TRAMADOL 50MG TABLET PO PRN (10:30)
[2019-08-26] MEDS ORDERED: APIXABAN 2.5 MG TABLET PO SCH (10:30)
[2019-08-26] MEDS: DIPHENHYDRAMINE 50MG CAPSULE PO SCH ×2 (12:00→18:00)
[2019-08-26] MEDS: DOCUSATE SODIUM 100MG CAPSULE PO SCH (19:54)
[2019-08-26] MEDS: PREGABALIN 75MG CAPSULE PO SCH (19:55)
[2019-08-26] MEDS: APIXABAN 2.5 MG TABLET PO SCH (19:56)
[2019-08-26] MEDS: DORZOLAM/TIMOLOL 2.23/0.68% OPHTH DROPS 10ML EACHEYE SCH (20:01)
[2019-08-27] VITALS (9 sets, daily range): BP systolic 115–132; BP diastolic 50–67
[2019-08-27] MEDS: DIPHENHYDRAMINE 50MG CAPSULE PO SCH (01:37)
[2019-08-27] MEDS: SODIUM CHLORIDE 0.9% 1,000 ML IV SCH (05:38)
[2019-08-27] MEDS ORDERED: LEVOFLOXACIN 250MG PREMIX 50 ML IV SCH (06:00)
[2019-08-27] MEDS ORDERED: COLCHICINE 0.6MG TABLET PO SCH (09:00)
[2019-08-27] MEDS ORDERED: BACLOFEN 10MG TABLET PO SCH (09:00)
[2019-08-27] MEDS ORDERED: ANASTROZOLE 1 MG TABLET PO SCH (09:00)
[2019-08-27] MEDS: ASCORBIC ACID 500 MG TABLET PO SCH (09:29)
[2019-08-27] MEDS: GABAPENTIN 400MG CAPSULE PO SCH (09:29)
[2019-08-27] MEDS: PREGABALIN 75MG CAPSULE PO SCH (09:31)
[2019-08-27] MEDS: APIXABAN 2.5 MG TABLET PO SCH (09:32)
[2019-08-27] MEDS: DOCUSATE SODIUM 100MG CAPSULE PO SCH (09:32)
[2019-08-27] MEDS: DORZOLAM/TIMOLOL 2.23/0.68% OPHTH DROPS 10ML EACHEYE SCH (09:33)
[2019-08-27] MEDS: MEGESTROL ACETATE 400 MG/10 ML UDC PO SCH (09:33)
[2019-08-28] MEDS ORDERED: LEVOFLOXACIN 250MG TABLET PO SCH (11:00)
== END 2019-08-27 13:30 | disposition home health service (06) | DRG 315 ==
LOC: ER 16:06 → 3WST 20:36 → EDBEDREQ 20:39 → EDBEDREQTM 20:39 → EDBEDREQSVC 20:39 → ENRESERV 22:38
PROVIDERS: ADMIT Hospitalist; ATTEND Hospitalist
DX: I95.9 Hypotension, unspecified (principal); D68.59 Other primary thrombophilia; I48.91 Unspecified atrial fibrillation; E03.9 Hypothyroidism, unspecified; E11.9 Type 2 diabetes mellitus without complications; I10 Essential (primary) hypertension; R55 Syncope and collapse; I25.10 Atherosclerotic heart disease of native coronary artery without angina pectoris; Z85.3 Personal history of malignant neoplasm of breast; Z90.10 Acquired absence of unspecified breast and nipple; Z88.0 Allergy status to penicillin; Z88.8 Allergy status to other drugs, medicaments and biological substances; Z79.01 Long term (current) use of anticoagulants; Z79.899 Other long term (current) drug therapy
CPT/HCPCS: 36415; 71045; 80053; 80061; 81003; 82550; 83605; 83735; 83880; 84145; 84439; 84443; 84484; 85025; 93005; 99285; J1956; J7030; Q0163

== ENCOUNTER 2020-01-17 20:38 | Inpatient (IN) | payer MEDICARE, MEDICAID ==
[~2020-01-17] VITALS: Ht 170.2 cm; Wt 55.8 kg
[2020-01-17] MEDS ORDERED: SODIUM CHLORIDE 0.9% 1,000 ML IV ONE (23:15)
[2020-01-18 01:03] LABS: CHLORIDE 102 mEq/L (98-107)
[2020-01-18 01:04] LABS: HEMOGLOBIN. 13.2 g/dL (12.0-16.0); MEAN CORPUSCULAR HEMOGLOBIN 32.3 pg (28.0-32.0); MEAN CORPUSCULAR VOLUME 97.4 fL (81.0-99.0); MEAN PLATELET VOLUME 7.5 fl (7.4-10.4); PLATELET 274 x1000/uL (130-400); RED CELL DISTRIBUTION WIDTH 15.6 % (11.6-14.6)
[2020-01-18] MEDS ORDERED: MORPHINE SULFATE 2 MG/ML CPJ (NOT FOR IM USE) IV ONE (01:45)
[2020-01-18] MEDS ORDERED: POTASSIUM CHLORIDE 20MEQ TABLET SR PO ONE (01:45)
[2020-01-18 02:18] LABS: PLATELET ESTIMATE NORMAL
[2020-01-18 08:40] VITALS: BP 129/67
[2020-01-18 08:45] VITALS: BP 129/67
[2020-01-18] MEDS ORDERED: DOCUSATE SODIUM 100MG CAPSULE PO PRN (09:15)
[2020-01-18] MEDS ORDERED: CLONIDINE 0.1MG TABLET PO PRN (09:15)
[2020-01-18] MEDS ORDERED: LORAZEPAM 0.5MG TABLET PO PRN (09:15)
[2020-01-18] MEDS ORDERED: ACETAMINOPHEN 325MG TABLET PO PRN ×2 (09:15)
[2020-01-18] MEDS ORDERED: IPRATROPIUM/ALBUTEROL 0.5-3(2.5)MG/3ML NEB HHN PRN (09:15)
[2020-01-18] MEDS ORDERED: ONDANSETRON HCL 4MG/2ML INJ IV PRN (09:15)
[2020-01-18] MEDS: HYDROCODONE/ACETAMINOPHEN 5/325MG TABLET PO PRN ×2 (10:18→20:59)
[2020-01-18] MEDS ORDERED: CEFTRIAXONE 1,000 MG in DEXTROSE 5% WATER 50 ML IV SCH (10:30)
[2020-01-18 10:41] LABS: PHOSPHORUS 1.8 mg/dL (2.5-4.9)
[2020-01-18 11:24] VITALS: BP 131/71
[2020-01-18] MEDS ORDERED: POTA-9 MT (12:00)
[2020-01-18] MEDS ORDERED: ATOR20TA65 MT (12:00)
[2020-01-18] MEDS ORDERED: LINA145C MT (12:00)
[2020-01-18] MEDS ORDERED: TRIA1TAB94 MT (12:00)
[2020-01-18] MEDS ORDERED: SOLI5TAB MT (12:00)
[2020-01-18] MEDS ORDERED: DOCU-286 MT (12:00)
[2020-01-18] MEDS ORDERED: FURO20TA4 MT (12:00)
[2020-01-18] MEDS ORDERED: CYAN10003 IM (12:05)
[2020-01-18] MEDS ORDERED: ALEN70TA68 PO (12:05)
[2020-01-18] MEDS ORDERED: LEVO75TA7 MT (12:05)
[2020-01-18] MEDS ORDERED: DICL100G31 TP (12:05)
[2020-01-18] MEDS ORDERED: AMLO2.5T45 MT (12:05)
[2020-01-18] MEDS ORDERED: METHOCARBAMOL 500MG TABLET PO PRN (15:30)
[2020-01-18] MEDS ORDERED: NON FORMULARY PATIENT HOME MED XX SCH ×4 (15:30)
[2020-01-18] MEDS: LACTULOSE 20G/30ML UDC PO SCH (15:40)
[2020-01-18] MEDS: CEFTRIAXONE 1,000 MG in DEXTROSE 5% WATER 50 ML IV SCH (15:41)
[2020-01-18 16:09] VITALS: BP 139/75
[2020-01-18] MEDS: ANASTROZOLE 1 MG TABLET PO SCH (17:00)
[2020-01-18] MEDS ORDERED: GABAPENTIN 400MG CAPSULE PO SCH (17:00)
[2020-01-18] MEDS ORDERED: POTASSIUM PHOS,M-BASIC-D-BASIC 30 MMOL in DEXT 5% WATER 500 ML IV SCH (17:00)
[2020-01-18] MEDS: GABAPENTIN 100MG CAPSULE PO SCH (17:43)
[2020-01-18] MEDS: LEVOTHYROXINE SODIUM 75MCG TABLET PO SCH (17:43)
[2020-01-18] MEDS: ATORVASTATIN CALCIUM 20MG TABLET PO SCH (17:43)
[2020-01-18] MEDS: APIXABAN 2.5 MG TABLET PO SCH (18:36)
[2020-01-18 20:00] VITALS: BP 109/66
[2020-01-18] MEDS: DILTIAZEM HCL 30MG TABLET PO SCH (21:00)
[2020-01-19] VITALS (7 sets, daily range): BP systolic 100–128; BP diastolic 47–70
[2020-01-19] MEDS: DILTIAZEM HCL 30MG TABLET PO SCH ×3 (06:29→20:39)
[2020-01-19] MEDS: LEVOTHYROXINE SODIUM 75MCG TABLET PO SCH (06:29)
[2020-01-19 06:51] LABS: HEMATOCRIT. 39.2 % (36.0-48.0); HEMOGLOBIN. 13.1 g/dL (12.0-16.0); MEAN CORPUSCULAR HEMOGLOBIN 32.1 pg (28.0-32.0); MEAN CORPUSCULAR VOLUME 96.2 fL (81.0-99.0); MEAN PLATELET VOLUME 7.6 fl (7.4-10.4); PLATELET 228 x1000/uL (130-400); RED BLOOD CELL COUNT 4.07 mill/uL (4.2-5.4); RED CELL DISTRIBUTION WIDTH 15.9 % (11.6-14.6)
[2020-01-19 06:55] LABS: CHLORIDE 104 mEq/L (98-107)
[2020-01-19 07:02] LABS: PHOSPHORUS 3.7 mg/dL (2.5-4.9)
[2020-01-19 07:30] LABS: HEPATITIS B SURFACE ANTIGEN NEGATIVE
[2020-01-19] MEDS ORDERED: POTASSIUM CHLORIDE 20MEQ TABLET SR PO SCH (07:30)
[2020-01-19] MEDS: LACTULOSE 20G/30ML UDC PO SCH (07:53)
[2020-01-19] MEDS: GABAPENTIN 100MG CAPSULE PO SCH ×3 (07:54→17:11)
[2020-01-19] MEDS: ANASTROZOLE 1 MG TABLET PO SCH (07:54)
[2020-01-19] MEDS: APIXABAN 2.5 MG TABLET PO SCH ×2 (07:55→17:11)
[2020-01-19] MEDS: ATORVASTATIN CALCIUM 20MG TABLET PO SCH (07:55)
[2020-01-19 07:59] LABS: HEPATITIS A AB IGM NEGATIVE (NEGATIVE)
[2020-01-19] MEDS: HYDROCODONE/ACETAMINOPHEN 5/325MG TABLET PO PRN (11:34)
[2020-01-19] MEDS ORDERED: DIGOXIN 125MCG TABLET PO SCH (12:00)
[2020-01-19 12:01] LABS: PLATELET ESTIMATE NORMAL
[2020-01-19] MEDS: CEFTRIAXONE 1,000 MG in DEXTROSE 5% WATER 50 ML IV SCH (15:54)
[2020-01-19] MEDS: DOCUSATE SODIUM 250MG CAPSULE PO SCH (15:58)
[2020-01-19] MEDS ORDERED: BISA10SU62 RC (16:39)
[2020-01-19] MEDS ORDERED: DOCU250C14 MT (16:39)
[2020-01-19 17:03] LABS: CLARITY URINE CLEAR (CLEAR); COLOR URINE DARK YELLOW (YELLOW); KETONES URINE NEGATIVE (NEGATIVE); LEUKOCYTE ESTERASE URINE NEGATIVE (NEGATIVE); NITRITE URINE NEGATIVE (NEGATIVE); OCCULT BLOOD URINE NEGATIVE (NEGATIVE); PH URINE 5.5 (4.5-8.0); PROTEIN URINE NEGATIVE (NEGATIVE); SPECIFIC GRAVITY URINE 1.022 (1.005-1.030)
[2020-01-19] MEDS ORDERED: INFLUENZA VACCINE 05/PF 0.5 ML VIAL IM ONE (19:30)
[2020-01-19] MEDS: MONTELUKAST SODIUM 10MG TABLET PO SCH (22:12)
[2020-01-20] VITALS: BP 111/60
[2020-01-20 04:00] VITALS: BP 126/70
[2020-01-20] MEDS: LEVOTHYROXINE SODIUM 75MCG TABLET PO SCH (06:22)
[2020-01-20 06:23] VITALS: BP 126/70
[2020-01-20] MEDS: HYDROCODONE/ACETAMINOPHEN 5/325MG TABLET PO PRN (06:23)
[2020-01-20] MEDS: DILTIAZEM HCL 30MG TABLET PO SCH ×2 (06:24→14:53)
[2020-01-20] MEDS: OXYBUTYNIN CHLORIDE 5MG TABLET PO SCH ×3 (09:00→16:53)
[2020-01-20] MEDS: ATORVASTATIN CALCIUM 20MG TABLET PO SCH (09:27)
[2020-01-20] MEDS: APIXABAN 2.5 MG TABLET PO SCH ×2 (09:27→16:53)
[2020-01-20] MEDS: DOCUSATE SODIUM 250MG CAPSULE PO SCH (09:27)
[2020-01-20] MEDS: ANASTROZOLE 1 MG TABLET PO SCH (09:27)
[2020-01-20] MEDS: LACTULOSE 20G/30ML UDC PO SCH (09:29)
[2020-01-20] MEDS: GABAPENTIN 100MG CAPSULE PO SCH ×3 (12:14→16:53)
[2020-01-20 12:24] LABS: CHLORIDE 105 mEq/L (98-107)
[2020-01-20 12:44] LABS: DIGOXIN 0.4 ng/mL (0.9-2.0)
[2020-01-20] MEDS ORDERED: DIGO-26 PO (13:17)
[2020-01-20] MEDS ORDERED: LACT10SO7 MT (13:17)
[2020-01-20] MEDS: CEFTRIAXONE 1,000 MG in DEXTROSE 5% WATER 50 ML IV SCH (13:54)
[2020-01-20] MEDS: DORZOLAMIDE 2% OPHTH 10 ML BOTTLE EACHEYE SCH ×2 (14:54→16:53)
[2020-01-20] MEDS ORDERED: DIGOXIN 125MCG TABLET PO SCH ×2 (15:03→18:00)
[2020-01-20] MEDS: MONTELUKAST SODIUM 10MG TABLET PO SCH (16:53)
[2020-01-20] MEDS ORDERED: LATANOPROST 0.005% OPHTH DROPS 2.5ML EACHEYE SCH (21:00)
[2020-01-23] MEDS ORDERED: ALENDRONATE SODIUM 35MG TABLET PO SCH (07:20)
== END 2020-01-20 17:15 | disposition home or self-care (01) | DRG 389 ==
LOC: ER 20:38 → 6WST 01-18 04:40 → EDBEDREQ 01-18 04:53 → EDBEDREQTM 01-18 04:53 → ENRESERV 01-18 07:39
PROVIDERS: ADMIT Internal Medicine; ATTEND Internal Medicine
DX: K56.41 Fecal impaction (principal); E87.2 Acidosis; R65.10 Systemic inflammatory response syndrome (SIRS) of non-infectious origin without acute organ dysfunction; I10 Essential (primary) hypertension; E03.9 Hypothyroidism, unspecified; I25.10 Atherosclerotic heart disease of native coronary artery without angina pectoris; M81.0 Age-related osteoporosis without current pathological fracture; E87.6 Hypokalemia; I48.0 Paroxysmal atrial fibrillation; K74.60 Unspecified cirrhosis of liver; E83.39 Other disorders of phosphorus metabolism; E78.00 Pure hypercholesterolemia, unspecified; D72.829 Elevated white blood cell count, unspecified; D72.810 Lymphocytopenia; D25.9 Leiomyoma of uterus, unspecified; E78.5 Hyperlipidemia, unspecified; Z88.0 Allergy status to penicillin; Z88.8 Allergy status to other drugs, medicaments and biological substances; Z79.899 Other long term (current) drug therapy; Z90.10 Acquired absence of unspecified breast and nipple; L89.156 Pressure-induced deep tissue damage of sacral region
CPT/HCPCS: 36415; 71045; 74176; 80048; 80053; 80162; 81003; 82040; 83036; 83605; 83735; 83880; 84100; 84132; 84134; 84145; 85025; 86705; 86709; 86803; 87340; 90686; 93005; 93306; 97162; 99291; J0696; J2270; J3490; J7030; J7060